=== PATIENT | male | born 1990 | race Caucasian/White ===

== ENCOUNTER 2021-10-12 15:56 | Emergency (ER) | payer SELFPAY ==
[~2021-10-12] VITALS: Ht 165.1 cm; Wt 77.3 kg
[2021-10-12 16:09] VITALS: BP 125/90
--- NOTE | 2021-10-12 16:15 | NUR ---
PT AMB TO BED 3.
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
[2021-10-12 17:49] VITALS: BP 125/90
--- NOTE | 2021-10-12 17:50 | NUR ---
Patient discharged with v/s stable. Written and verbal after care instructions given and explained. Patient verbalized understanding. Ambulatory with steady gait. All questions addressed prior to discharge. Advised to follow up with PMD.
== END 2021-10-12 17:50 | disposition home or self-care (01) ==
LOC: MED 15:56
DX: Z48.00 Encounter for change or removal of nonsurgical wound dressing (principal)
CPT/HCPCS: 99281

== ENCOUNTER 2021-10-16 10:36 | Emergency (ER) | payer SELFPAY ==
[~2021-10-16] VITALS: Ht 165.1 cm; Wt 79.4 kg
--- NOTE | 2021-10-16 10:49 | NUR ---
PT AMBULATED TO ER BED 10
[2021-10-16 10:50] VITALS: BP 127/88
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
--- NOTE | 2021-10-16 11:03 | NUR ---
DR BARRAGAN AT BEDSIDE FOR EVALUATION
--- NOTE | 2021-10-16 11:09 | NUR ---
PT AMBULATED TO RESTROOM WITH STEADY GAIT.
--- NOTE | 2021-10-16 11:18 | NUR ---
TIFFANI APPIAH) COLLECTED AND HANDED TO [employer]
--- NOTE | 2021-10-16 11:19 | NUR ---
LAB AT BEDSIDE
[2021-10-16 11:59] LABS: BASOPHILS % (AUTO) 0.6 % (0.0-2.0); EOSINOPHILS # (AUTO) 0.2 K/uL (0-0.4); EOSINOPHILS % (AUTO) 2.6 % (0.0-4.0); HEMATOCRIT 42.9 % (36-52); HEMOGLOBIN 14.5 g/dL (12.0-18.0); LYMPHOCYTES # (AUTO) 2.4 K/uL (2.0-11.5); MEAN CORPUSCULAR HEMOGLOBIN 32 pg (27-31); MEAN CORPUSCULAR HGB CONC 34 g/dL (33-37); MONOCYTES # (AUTO) 0.6 K/uL (0.8-1.0); MONOCYTES % (AUTO) 8.5 % (1.7-9.3); NEUTROPHILS # (AUTO) 4.4 K/uL (1.8-7.7); NEUTROPHILS % (AUTO) 57.3 % (42.2-75.2); PLATELET COUNT (AUTO) 337 K/uL (140-450); RED BLOOD CELL COUNT(AUTO) 4.57 MIL/uL (4.20-6.10); RED CELL DISTRIBUTION WIDTH 14.2 % (11.6-13.7); WHITE BLOOD COUNT (AUTO) 7.6 K/uL (4.8-10.8)
--- NOTE | 2021-10-16 12:01 | NUR ---
PT TAKEN TO CT VIA W/C
--- NOTE | 2021-10-16 12:07 | NUR ---
PT RETURNED FROM CT
[2021-10-16 12:18] LABS: ALBUMIN 3.6 g/dL (3.4-5.0); ANION GAP 11.5 (8-16); ASPARTATE AMINOTRANSFERASE 151 U/L (15-37); CARBON DIOXIDE 27.3 mmol/L (21-32); CHLORIDE 104 mmol/L (98-107); CREATININE 0.8 mg/dL (0.6-1.3); GFR ARICAN-AMERICAN 145 mL/min (>90); GLUCOSE 101 mg/dL (74-106); POTASSIUM 3.8 mmol/L (3.5-5.1); SODIUM SERUM 139 mmol/L (136-145); TOTAL BILIRUBIN 0.7 mg/dL (0.0-1.0); UREA NITROGEN, BLOOD 10 mg/dL (7-18)
[2021-10-16] MEDS ORDERED: MECL-303 PO (12:46)
--- NOTE | 2021-10-16 12:50 | NUR ---
Patient discharged with v/s stable. Written and verbal after care instructions ABOUT DIZZINESS given and explained. Patient alert, oriented and verbalized understanding of instructions. Ambulatory with steady gait. All questions addressed prior to discharge. ID band removed. Patient advised to follow up with PMD. Rx of MECLIZINE given. Patient educated on indication of medication including possible reaction and side effects. Opportunity to ask questions provided and answered.
== END 2021-10-16 12:50 | disposition home or self-care (01) ==
LOC: MED 10:36
DX: J10.1 Influenza due to other identified influenza virus with other respiratory manifestations (principal); Z20.822 Contact with and (suspected) exposure to COVID-19; Z98.890 Other specified postprocedural states
CPT/HCPCS: 36415; 80053; 84484; 85025; 86886; 86900; 86901; 99284